=== PATIENT | female | born 1955 | race African-American/Black ===

== ENCOUNTER 2019-05-21 10:18 | Emergency (ER) | payer MEDICAID ==
[~2019-05-21] VITALS: Ht 165.1 cm; Wt 77.1 kg
[2019-05-21 10:36] VITALS: BP 130/55
[2019-05-21] MEDS ORDERED: DIVALPROEX SOD500 M2 PO (10:39)
[2019-05-21] MEDS ORDERED: METOPROLOL TART25 MG ORAL (10:39)
[2019-05-21] MEDS ORDERED: PHENYTOIN SODI100 MG ORAL (10:39)
[2019-05-21] MEDS ORDERED: VITAMIN D400 INTLU ORAL (10:39)
[2019-05-21] MEDS ORDERED: LACTULOSE20 GM/301 ORAL (10:39)
[2019-05-21] MEDS ORDERED: BENZTROPINE ME0.5 MG PO (10:39)
[2019-05-21] MEDS ORDERED: SEROQUEL200 MG ORAL (10:39)
--- NOTE | 2019-05-21 10:40 | NUR ---
ED Nurse Note: pt was brought in by ambulance from adult [facility] care facility c/o general weakness. pt noted to have swelling on bilateral legs, pt able to identify self, pt ahs hx of mental retardation. denies any pain. per ems, pt fell last night, no apparent head trauma. pt was seen by ermd, pt able to give urine and was sent to lab. will continue to monitor.
[2019-05-21 10:48] LABS: APPEARANCE,URINE CLEAR; BILIRUBIN, URINE NEGATIVE (NEGATIVE); COLOR,URINE PALE YELLOW; GLUCOSE, URINE (UA) NEGATIVE (NEGATIVE); KETONES,URINE NEGATIVE (NEGATIVE); LEUKOCYTE ESTERASE ,URINE NEGATIVE (NEGATIVE); NITRITE,URINE NEGATIVE (NEGATIVE); PH,URINE 7 (4.5-8.0); PROTEIN,URINE NEGATIVE (NEGATIVE); UROBILINOGEN,URINE NORMAL MG/DL (0.0-1.0)
--- NOTE | 2019-05-21 10:52 | Emergency Room Report ---
History of Present Illness General Chief Complaint: Generalized Weakness Source: EMS Present Illness HPI Patient is a 63-year-old female brought in by EMS after increased generalized weakness and difficulty with movement. Patient reportedly had recent falls. She had been noted to have some baseline cognitive delay as well as prior history of seizure disorder. Patient is currently on seizure medications which include Depakote as well as Dilantin.Patient had reportedly been found down on the ground by her caregiver. She had unknown mechanism of injury. Patient had no current complaints of pain. She was noted to have increased difficulty with ambulation due to leg swelling. Allergies: Coded Allergies: No Known Allergies (Unverified , 05/21/19) Patient History Past Medical History: see triage record Reviewed Nursing Documentation: PMH: Agreed; PSxH: Agreed Nursing Documentation-PMH Past Medical History: No History, Except For Hx Hypertension: Yes - mild mental retardation Review of Systems All Other Systems: negative except mentioned in HPI Physical Exam Vital Signs Date Time Temp Pulse Resp B/P (MAP) Pulse Ox O2 Delivery O2 Flow Rate FiO2 05/21/19 10:17 97.9 77 16 144/65 (91) 99 Room Air Sp02 EP Interpretation: reviewed, normal General Appearance: normal inspection, well appearing, no apparent distress, alert, Chronically Ill Head: atraumatic ENT: normal ENT inspection, hearing grossly normal, normal voice Neck: normal inspection, full range of motion, supple, no bony tend Respiratory: normal inspection, lungs clear, normal breath sounds, no respiratory distress, no retraction, no wheezing Cardiovascular #1: regular rate, rhythm, no edema Gastrointestinal: normal inspection, normal bowel sounds, non tender, soft, no guarding, no hernia Genitourinary: no CVA tenderness Musculoskeletal: normal inspection, back normal, normal range of motion Neurologic: normal inspection, alert, oriented x3, responsive, [employer] III-XII nml as tested, motor strength/tone normal, speech normal Psychiatric: normal inspection, judgement/insight normal, mood/affect normal Medical Decision Making Diagnostic Impression: Primary Impression: Generalized weakness Additional Impressions: Dependent edema Syncopal episodes Ruled Out: Deep venous thrombosis ER Course Patient presented for increased generalized weakness and difficulty with ambulation. Differential diagnosis include was not limited to electro light abnormality, myocardial infarction, congestive heart failure, DVT among others. Because of complexity of patient's case laboratory testing and imaging studies were ordered. EKG interpreted by me showed normal sinus rhythm without acute ST or T wave changes. Patient was noted to have negative duplex venous ultrasound studies. Patient was given IV Lasix for swelling. She does not appear to have any evidence of congestive heart failure. was contacted for [facility] for possible transfer. Patient is currently stable for transfer. Labs Test 05/21/19 10:30 05/21/19 10:34 05/21/19 11:30 Phenytoin (Dilantin) Level 19.3 ug/mL (10-20) Valproic Acid (Depakene) Level 58 MCG/ML (50-100) White Blood Count 7.2 K/UL (4.8-10.8) Red Blood Count 4.38 M/UL (4.20-5.40) Hemoglobin 13.6 G/DL (12.0-16.0) Hematocrit 42.3 % (37.0-47.0) Mean Corpuscular Volume 97 FL (80-99) Mean Corpuscular Hemoglobin 31.1 PG (27.0-31.0) Mean Corpuscular Hemoglobin Concent 32.2 G/DL (32.0-36.0) Red Cell Distribution Width 12.4 % (11.6-14.8) Platelet Count 126 K/UL (150-450) Mean Platelet Volume 5.7 FL (6.5-10.1) Neutrophils (%) (Auto) 43.9 % (45.0-75.0) Lymphocytes (%) (Auto) 42.7 % (20.0-45.0) Monocytes (%) (Auto) 10.9 % (1.0-10.0) Eosinophils (%) (Auto) 1.5 % (0.0-3.0) Basophils (%) (Auto) 1.0 % (0.0-2.0) Urine Color Pale yellow Urine Appearance Clear Urine pH 7 (4.5-8.0) Urine Specific [place] 1.005 (1.005-1.035) Urine Protein Negative (NEGATIVE) Urine Glucose (UA) Negative (NEGATIVE) Urine Ketones Negative (NEGATIVE) Urine Blood Negative (NEGATIVE) Urine Nitrite Negative (NEGATIVE) Urine Bilirubin Negative (NEGATIVE) Urine Urobilinogen Normal MG/DL (0.0-1.0) Urine Leukocyte Esterase Negative (NEGATIVE) Urine RBC 0 /HPF (0 - 2) Urine WBC 0-2 /HPF (0 - 2) Urine Squamous Epithelial Cells Occasional /LPF Urine Bacteria Occasional /HPF (NONE) Sodium Level 140 MMOL/L (136-145) Potassium Level 4.8 MMOL/L (3.5-5.1) Chloride Level 102 MMOL/L (98-107) Carbon Dioxide Level 30 MMOL/L (21-32) Anion Gap 8 mmol/L (5-15) Blood Urea Nitrogen 30 mg/dL (7-18) Creatinine 0.9 MG/DL (0.55-1.30) Estimat Glomerular Filtration Rate > 60 mL/min (>60) Glucose Level 97 MG/DL (74-106) Calcium Level 9.3 MG/DL (8.5-10.1) Total Bilirubin 0.8 MG/DL (0.2-1.0) Aspartate Amino Transf (AST/SGOT) 56 U/L (15-37) Alanine Aminotransferase (ALT/SGPT) 19 U/L (12-78) Alkaline Phosphatase 60 U/L (46-116) Troponin I 0.013 ng/mL (0.000-0.056) Total Protein 8.1 G/DL (6.4-8.2) Albumin 3.3 G/DL (3.4-5.0) Globulin 4.8 g/dL Albumin/Globulin Ratio 0.7 (1.0-2.7) Thyroid Stimulating Hormone (TSH) 2.634 uiU/mL (0.358-3.740) Prothrombin Time 11.3 SEC (9.30-11.50) Prothromb Time International Ratio 1.1 (0.9-1.1) Activated Partial Thromboplast Time 19 SEC (23-33) EKG Diagnostic Results Rate: normal Rhythm: NSR ST Segments: no acute changes Last Vital Signs Date Time Temp Pulse Resp B/P (MAP) Pulse Ox O2 Delivery O2 Flow Rate FiO2 05/21/19 10:36 97.9 85 15 130/55 92 Room Air Status: improved Disposition: [facility] Condition: Stable Blair Wilson MD May 21, 2019 10:52
[2019-05-21 11:06] LABS: EOSINOPHILS % (AUTO) 1.5 % (0.0-3.0); HEMATOCRIT 42.3 % (37.0-47.0); HEMOGLOBIN 13.6 G/DL (12.0-16.0); LYMPHOCYTES % (AUTO) 42.7 % (20.0-45.0); MEAN CORPUSCULAR VOLUME 97 FL (80-99); MONOCYTES % (AUTO) 10.9 % (1.0-10.0); NEUTROPHILS % (AUTO) 43.9 % (45.0-75.0); PLATELET COUNT 126 K/UL (150-450); RED BLOOD COUNT 4.38 M/UL (4.20-5.40); RED CELL DISTRIBUTION WIDTH 12.4 % (11.6-14.8); WHITE BLOOD COUNT 7.2 K/UL (4.8-10.8)
[2019-05-21 11:07] LABS: ANION GAP 8 mmol/L (5-15); BLOOD UREA NITROGEN 30 mg/dL (7-18); CALCIUM 9.3 MG/DL (8.5-10.1); CARBON DIOXIDE 30 MMOL/L (21-32); CHLORIDE 102 MMOL/L (98-107); CREATININE 0.9 MG/DL (0.55-1.30); POTASSIUM 4.8 MMOL/L (3.5-5.1); SODIUM 140 MMOL/L (136-145)
--- NOTE | 2019-05-21 11:18 | NUR ---
ED Nurse Note: [facility]:JOHN AWAD
[2019-05-21 11:21] LABS: ALANINE AMINOTRANSFERASE 19 U/L (12-78); ALBUMIN 3.3 G/DL (3.4-5.0); ALBUMIN/GLOBULIN RATIO 0.7 (1.0-2.7); ALKALINE PHOSPHATASE 60 U/L (46-116); ASPARTATE AMINO TRANSFERASE 56 U/L (15-37); BILIRUBIN,TOTAL 0.8 MG/DL (0.2-1.0)
--- NOTE | 2019-05-21 11:31 | NUR ---
ED Nurse Note: Pt. went down to CT
--- NOTE | 2019-05-21 11:41 | NUR ---
ED Nurse Note: pt went back from ct with tech
--- NOTE | 2019-05-21 12:00 | NUR ---
ED Nurse Note: clinical research tech on bedside.
--- NOTE | 2019-05-21 12:01 | Diagnostic Imaging Report ---
Indication: Headache Technique: Contiguous 5 mm thick transaxial imaging of the head obtained in a Siemens Sensation [address] scanner. Soft tissue and bone windows generated. Automatic Exposure Control was utilized. Total Dose length Product (DLP): 1333.[address] Dose Index Volume (CTDIvol): 70.38 mGy Comparison: 09/20/2005 Findings: There is mild prominence of the ventricles, basal cisterns, and cerebral sulci consistent with atrophy. Mild, nonspecific, white matter hypoattenuation is noted throughout the brain consistent with chronic small vessel disease. There is no midline shift, edema, acute hemorrhage, mass effect, or abnormal extra-axial fluid collections. Bones are unremarkable. Impression: No acute intracranial bleed, mass effect or edema. Mild atrophy of the brain. Nonspecific white matter hypoattenuation probably due to chronic small vessel disease. The CT scanner at [facility] [place] is accredited by the [employer] and the scans are performed using dose optimization techniques as appropriate to a performed exam including Automatic Exposure control.
[2019-05-21 12:06] LABS: INR 1.1 (0.9-1.1)
[2019-05-21 12:38] VITALS: BP 118/48
--- NOTE | 2019-05-21 13:03 | NUR ---
ED Nurse Note: [facility] called for update.
[2019-05-21 13:47] VITALS: BP 120/53
--- NOTE | 2019-05-21 14:35 | NUR ---
ED Nurse Note: attempted to call to give report to [facility], rn will call back in 10 minutes.
--- NOTE | 2019-05-21 14:54 | NUR ---
ED Nurse Note: Dain LOREDO from [facility] called and report was given.
[2019-05-21 15:20] VITALS: BP 132/68
[2019-05-21 16:05] VITALS: BP 132/68
--- NOTE | 2019-05-21 16:05 | NUR ---
ED Nurse Note: pt was trasnfered to [facility] via [facility]. pt left the ed with stable vs and with all belongings.
--- NOTE | 2019-05-22 18:26 | Cardiology Report ---
APPROVED REPORT EKG Measurement Heart [id number] Normal sinus rhythm Rightward axis Borderline ECG
== END 2019-05-21 16:05 | disposition short-term general hospital (02) ==
LOC: EDBD 10:18 → EMR 11:53
DX: R53.1 Weakness (principal); R60.0 Localized edema; R55 Syncope and collapse; F70 Mild intellectual disabilities
CPT/HCPCS: 36415; 70450; 80053; 80164; 80185; 81001; 82962; 84443; 84484; 85025; 85610; 85730; 93005; 93970; 96374; 99285; J1940